=== PATIENT | male | born 1995 | race Hispanic/Latino ===

== ENCOUNTER 2024-09-14 22:03 | Emergency (ER) | payer SELFPAY ==
[~2024-09-14] VITALS: Ht 167.6 cm; Wt 85.7 kg
--- NOTE | 2024-09-14 22:16 | ERN ---
ED Note History of Present Illness Stated Complaint: C/O PAIN TO RT HAND AFTER PUNCHING HAND Chief Complaint: Hand Problem/Injury Time Seen by MD: 22:05 Time Seen by Midlevel: 22:05 Dictation: The patient is a 29-year-old male who presents to the emergency department with complaints of right hand pain after he punched his truck after getting angry about 30 minutes prior to arrival.. Patient denies any other injuries. Denies any numbness or decreased range of motion. Allergies: Coded Allergies: No Known Allergies (Unverified Allergy, Unknown, 09/14/24) Past Medical History Past Medical History: No Pertinent History Surgical History: None RN Note Reviewed/Agreed w/PFSH: Yes Review of System Dictation Constitutional: Negative for fever,chills, and weight loss Eyes: Negative for injury, pain,redness, and discharge ENT: Negative for injury,pain or swelling Cardiovascular: Negative for chest pain, palpitations, and edema Respiratory: Negative for shortness of breath, cough, and wheezing, Abdomen/GI: Negative for abdominal pain, nausea, vomiting, diarrhea, and constipation Back: Negative for injury and pain : Negative for injury, bleeding and discharge MS/Extremity positive for right hand injury Skin: Negative for rash, and discoloration Neuro: Negative for headache, weakness, numbness, tingling, and seizure Psych: Negative for suicide ideation, homicidal ideation, and hallucinations Initial Vital Sign VS Vital Signs Date Time Temp Pulse Resp B/P (MAP) Pulse Ox O2 Delivery O2 Flow Rate FiO2 09/14/24 22:05 97.3 60 20 135/94 100 Room Air 09/14/24 22:30 0 21 Physical Exam Dictation Vital Signs reviewed General Appearance: Alert, oriented x 3, no acute distress, well developed, nourished. Head and Face: non-traumatic. Eyes: PERRL, pink conjunctivas, eyelid no trauma, anterior chamber with arcus senilis. Ears: Pinnas intact and no signs of trauma or erythema ear canals clear and no discharge TM no erythema Nose: No discharge, no bleeding. Oropharynx: Mouth normal, tongue pink. pharynx clear,no erythema, tonsils no exudates, no abscesses noted, mucous membrane moist Neck: Supple, non-tender, no thyromegaly, no masses, no JVD, no bruits Breast:Deferred Chest:No tenderness, no crepitus, no paradoxical movement, no retractions Lungs:Clear, well-ventilated, symmetric, no rales, no wheezing, no rhonchi, no stridor, good breath sounds bilaterally Heart: Regular rate, regular rhythm, no murmur, no gallops Vascular: no peripheral edema, Abdomen: Soft, positive bowel sounds, nondistended, no guarding, nontender, no rebound, no masses no hepatomegaly, no splenomegaly, no Nevarez's sign, no hernias. Rectal: Deferred Genital: Deferred Neurological: Normal speech, motor function intact, sensory function intact Musculoskeletal: Neck nontender, full range of motion, back nontender, full range of motion, Extremities: nontender, full range of motion , mild swelling to lateral right hand, full range of motion, cap refill less than 2 seconds Skin: Color pink, dry, no turgor, no rash, no lacerations, no abrasions, no contusions. Lymphatic: Deferred Results (Laboratory/Radiology) Laboratory/Radiology REASON: pain ORDERING PHYSICIAN: BILL SHANNON RIVET THROWER PROCEDURE: HAND 3V RT - HAND 3+VWS RT EXAM: CR Right Hand, 3 views. CLINICAL HISTORY: Pain. COMPARISON: None provided. FINDINGS: Questionable nondisplaced acute fracture at the fifth metacarpal base with adjacent soft tissue swelling. The remaining bones and joints are within normal limits. IMPRESSION: Questionable nondisplaced acute fracture at the fifth metacarpal base with adjacent soft tissue swelling. /[place] [facility] Reviewed?: Yes ED Course ED Course Orders Procedure Category Date Status Time Hand 3+Vws Rt RAD 09/14/24 Resulted 22:09 Ibuprofen 600 Mg PHA 09/14/24 Complete Tablet (Motrin) 22:30 Boxer Splint SHIRIN.ER 09/14/24 In Process 23:52 Current Medications Medications (Trade) Dose Ordered Sig/Robby Route PRN Reason Start Time Stop Time Status Last Admin Dose Admin Ibuprofen (moTRIN) 600 mg ONCE ONCE PO 09/14/24 22:30 09/14/24 22:31 DC 09/14/24 22:39 Vital Signs Date Time Temp Pulse Resp B/P (MAP) Pulse Ox O2 Delivery O2 Flow Rate FiO2 09/14/24 22:30 97.3 60 18 135/94 100 Room Air* 0 21 09/14/24 22:05 97.3 60 20 135/94 100 Room Air Medical Decision Making MDM The patient is a 29-year-old male who presents to the emergency department with complaints of right hand pain after he punched his truck after getting angry about 30 minutes prior to arrival.. Patient denies any other injuries. Denies any numbness or decreased range of motion. Xray showed nondisplaced acute fracture at the fifth metacarpal base with adjacent soft tissue swelling. On physical exam patient is in no acute distress, neurovascular intact, full ROM to hand, no open wounds. Patient will be placed on a splint and instructed to follow up with Ortho. Differential diagnosis: Boxer's fracture, hand contusion, dislocations Need for hospitalization: Patient does not meet criteria for hospitalization. There are no social concerns with this patient. DX & DISP Disposition: Discharge Departure Impression: Primary Impression: Fracture of fifth metacarpal bone of right hand Condition: Stable Scripts Ibuprofen (Ibuprofen) 600 Mg Tablet 600 MG PO Q6H PRN for PAIN, #15 TAB Prov: BILL SHANNON 09/15/24 Additional Instructions: Your xray showed a fracture of your hand. You will need to follow up with orthopedic (bone specialist). Avoid any activity that can further injure your hand. if anything worsens please return to ER. FOLLOW-UP WITH PRIMARY CARE PROVIDER IN 1 TO 2 DAYS. TAKE MEDICATIONS DIRECTED HERE IN THE EMERGENCY ROOM. OKAY TO CONTINUE HOME MEDICATIONS UNLESS OTHERWISE DISCUSSED DURING YOUR VISIT IN THE EMERGENCY ROOM TODAY. RETURN TO YOUR NEAREST EMERGENCY ROOM IF SYMPTOMS WORSEN OR IF THERE IS NO IMPROVEMENT. CALL 911 IF YOU NEED IMMEDIATE ASSISTANCE. TAKE TYLENOL [id number] NEEDED AND IF NO CONTRAINDICATIONS ARE PRESENT. INCREASE ORAL HYDRATION. A WOUND CULTURE OR URINE CULTURE WAS ORDERED HERE IN THE EMERGENCY ROOM DEPARTMENT PLEASE FOLLOW-UP WITH PRIMARY CARE PROVIDER AND ADVISE THEM TO GET REPEAT PORTS FROM OUR FACILITY. IF YOU HAD ANY VASHTI WRAP/SPLINTS THAT WERE APPLIED HERE, PLEASE DO NOT REMOVE THEM UNTIL YOU SEE YOUR PRIMARY CARE OR SPECIALTY. Referrals: SELF,REFERRAL (PCP) ANNETTE ZAMBRANO MD Time of Disposition: 00:07 I have reviewed the case, and I agree with, Diagnosis and Plan BILL SHANNON Sep 14, 2024 22:16
--- NOTE | 2024-09-14 23:54 | HMCIMG ---
EXAM: CR Right Hand, 3 views. CLINICAL HISTORY: Pain. COMPARISON: None provided. FINDINGS: Questionable nondisplaced acute fracture at the fifth metacarpal base with adjacent soft tissue swelling. The remaining bones and joints are within normal limits. IMPRESSION: Questionable nondisplaced acute fracture at the fifth metacarpal base with adjacent soft tissue swelling. /[place]
[2024-09-15] MEDS ORDERED: IBUP-2070 PO (00:08)
--- NOTE | 2024-09-15 00:10 | NUR ---
BOXER SPLINT APPLIED TO RIGHT HAND
[2024-09-15 00:15] VITALS: BP 118/83; PULSE 60; RESP 18; TEMP 97.3; O2SAT 100
== END 2024-09-15 00:24 | disposition home or self-care (01) ==
LOC: EDH 22:03
DX: S62.316A Displaced fracture of base of fifth metacarpal bone, right hand, initial encounter for closed fracture (principal); W22.8XXA Striking against or struck by other objects, initial encounter; Y93.89 Activity, other specified; Y92.89 Other specified places as the place of occurrence of the external cause; Y99.8 Other external cause status
CPT/HCPCS: 29125; 73130; 99283